=== PATIENT | male | born 1995 | race Caucasian/White ===

== ENCOUNTER 2021-10-04 01:09 | Emergency (ER) | payer OTHER ==
[~2021-10-04] VITALS: Ht 175.3 cm; Wt 109.9 kg
[2021-10-04 03:50] VITALS: BP 132/77
== END 2021-10-04 03:57 | disposition home or self-care (01) ==
LOC: EMS 01:13
DX: F10.129 Alcohol abuse with intoxication, unspecified (principal); Y90.9 Presence of alcohol in blood, level not specified
CPT/HCPCS: 99283; Z7502